=== PATIENT | female | born 1970 | race Caucasian/White ===

== ENCOUNTER 2017-01-16 19:18 | Emergency (ER) | payer OTHER ==
[2017-01-16 19:29] VITALS: BP 121/77; PULSE 76; TEMP 98.5; BMI 24.2
[2017-01-16] MEDS ORDERED: METOCLOPRAMIDE HCL INJECTION 10 MG/2 ML VIAL IVPB ONE (19:52)
[2017-01-16] MEDS ORDERED: SODIUM CHLORIDE 1,000 ML IV STA (19:53)
--- NOTE | 2017-01-16 19:56 | PDOC ---
History of Present Illness - General Chief Complaint: Migraine Headache Stated Complaint: MIGRAINE Time Seen by Provider: 01/16/17 19:34 History Source: Patient Exam Limitations: No Limitations - History of Present Illness Initial Comments: 01/16/17 20:29 Chief complaint: Migraine headache "like lightning bolt pain", nausea History of present illness: Patient is a 46-year-old female with history of migraines chronic back and neck pain here today complaining of worsening migraine today with lightning bolt sensations to her head with nausea. Patient reports that she took Foricet this morning however pain was not relieved. Patient has photophobia & phonophobia, patient reports that pain starts in the back of her head and radiates to the front of her head bilaterally. She denies any change in her vision. Patient reports the pain currently is a 10 out of 10. Reports that she gets lightning bolt-like sensations intermittently to her head that are intense. Patient reports that this is not usual for her headaches. She denies any chance of is on oral contraceptives. Timing/Duration: reports: waxing and waning (today ) Severity: Yes: severe Associated Symptoms: reports: loss of consciousness, nausea/vomiting (nausea), vision changes, other (photophobia, phonophobia, lightening bolt sensation to head intermittent today,) Past History - Past Medical History Allergies/Adverse Reactions: Allergies Allergy/AdvReac Type Severity Reaction Status Date / Time No Known Allergies Allergy Verified 01/16/17 19:27 Home Medications: Ambulatory Orders Ibuprofen [Motrin -] 600 mg PO QID #28 tablet 08/26/15 Clonazepam [Klonopin] 1 mg PO BID PRN 12/26/15 Morphine *Sr* [Ms Contin -] 15 mg PO Q12H 12/26/15 Nortriptyline HCl [Pamelor -] 25 mg PO HS 12/26/15 Oxycodone Sr [Oxycontin] 10 mg PO BID 12/26/15 Suicide Attempt (Hx): No Other medical history: Migraine - Surgical History Neurologic Surgery: Yes (cervical neck ) - Immunization History Immunization Up to Date: Yes - Psycho/Social/Smoking Cessation Hx Suicidal Ideation: No Smoking Status: Yes Smoking History: Never smoked Have you smoked in the past 12 months: No Number of Cigarettes Smoked Daily: 0 Hx Alcohol Use: No Drug/Substance Use Hx: No Substance Use Type: None Neuro Specific PMHX - Complaint Specific PMHX Herniated Disk: Yes (cervical with surgical repair) Migraine: Yes Review of Systems - Review of Systems Able to Perform ROS?: Yes Constitutional: No: Symptoms Reported HEENTM: Yes: Other (photophobia ) Respiratory: No: Symptoms reported Cardiac (ROS): No: Symptoms Reported ABD/GI: Yes: Nausea : No: Symptoms Reported Musculoskeletal: No: Symptoms Reported Integumentary: No: Symptoms Reported Neurological: Yes: Headache (with lightening bolt sensation intermittently today ) *Physical Exam - Vital Signs Last Vital Signs Temp Pulse Resp BP Pulse Ox 98.5 F 76 18 121/77 98 01/16/17 19:27 01/16/17 19:27 01/16/17 19:27 01/16/17 19:27 01/16/17 19:27 - Physical Exam General Appearance: Yes: Appropriately Dressed HEENT: positive: EOMI, JOHN, Normal ENT Inspection, Photophobia Neck: negative: Lymphadenopathy (R), Lymphadenopathy (L) Respiratory/Chest: positive: Lungs Clear, Normal Breath Sounds. negative: Chest Tender, Respiratory Distress Cardiovascular: positive: Regular Rhythm, Regular Rate, S1, S2 Integumentary: positive: Normal Color Neurologic: positive: barrel filler II-XII NML intact, Alert, Normal Response, Motor Strength 5/5, Respond to painful stimul, Responsive, Finger to Nose. negative: Numbness, Sensory Deficit Medical Decision Making - Medical Decision Making 01/16/17 20:32 Patient is a 46-year-old female with history of migraines chronic back and neck pain here today complaining of worsening migraine today with lightning bolt sensations to her head with nausea. Patient reports that she took Foricet this morning however pain was not relieved. Patient has photophobia & phonophobia, patient reports that pain starts in the back of her head and radiates to the front of her head bilaterally. She denies any change in her vision. Patient reports the pain currently is a 10 out of 10. Reports that she gets lightning bolt-like sensations intermittently to her head that are intense. Patient reports that this is not usual for her headaches. She denies any chance of is on oral contraceptives. Migraine non intractable PLAN: iv insert reglan 10 mg IVPB benadryl 25 mg IVPB urine hcg negative toradol 30 mg IVPB NS 0.9 1000 ml IV bolus FEELING BETTER WILL BE DISCHARGE TO HOME 01/16/17 20:36 01/16/17 22:00 Data Detail Level: Printer-Friendly View | Show Extended View Confidential Drug Utilization Report Search Terms: Michelle Rodriguez, 1970 Search Date: 01/16/2017 09:59 :05 PM The Drug Utilization Report below displays all of the controlled substance prescriptions, if any, that your patient has filled in the last twelve months. The information displayed on this report is compiled from pharmacy submissions to the Department, and accurately reflects the information as submitted by the pharmacies. This report was requested by: Bettye Ritchie | Reference #: [id number] Others' Prescriptions Patient Name: Michelle Rodriguez Date: 1970 Address: [address] [place] [address] Sex: Female Rx Written Rx Dispensed Drug Quantity Days Supply Prescriber Name 12/21/2016 12/21/2016 oxycodone-acetaminophen 10-325 mg tab 30 30 Doblin, Kasey [employer] 11/20/2016 11/20/2016 oxycodone-acetaminophen 10-325 mg tab 30 30 Doblin, Kasey [employer] 11/20/2016 11/20/2016 clonazepam 1 mg tablet 60 30 Doblin, Kasey [employer] 01/16/17 22:11 *DC/Admit/Observation/Transfer Diagnosis at time of Disposition: Migraine Qualifiers: Migraine type: unspecified Status migrainosus presence: without status migrainosus Intractability: not intractable Qualified Code(s): G43.909 - Migraine, unspecified, not intractable, without status migrainosus - Discharge Dispostion Disposition: HOME Condition at time of disposition: Stable - Patient Instructions Additional Instructions: fOLLOW up with your neurologist as soon as possible Return to emergency room if symptoms worsen headache reoccurs and is unrelieved by your present migraine medication Rest and drink a lot a fluids Patient voiced understanding of discharge instructions and all questions were answered
[2017-01-16] MEDS ORDERED: KETOROLAC TROMETHAMINE 60 MG/2 ML VIAL IVPB ONE (20:35)
[2017-01-16] MEDS ORDERED: METOCLOPRAMIDE HCL INJECTION 10 MG/2 ML VIAL ONE (20:35)
[2017-01-16] MEDS ORDERED: KETOROLAC TROMETHAMINE 30 MG/1 ML VIAL ONE (21:06)
== END 2017-01-16 22:22 | disposition home or self-care (01) ==
LOC: JER 19:18 → JERFT 19:18
PROC: 3E0337Z Introduction of Electrolytic and Water Balance Substance into Peripheral Vein, Percutaneous Approach (ICD-10-PCS; principal; 2017-01-16)
PROC: 3E0333Z Introduction of Anti-inflammatory into Peripheral Vein, Percutaneous Approach (ICD-10-PCS; 2017-01-16)
PROC: 3E033GC Introduction of Other Therapeutic Substance into Peripheral Vein, Percutaneous Approach (ICD-10-PCS; 2017-01-16)
DX: G43.909 Migraine, unspecified, not intractable, without status migrainosus (principal); M54.2 Cervicalgia; M54.5 Low back pain; G89.29 Other chronic pain
CPT/HCPCS: 84703; 96361; 96374; 96375; 99281-25

== ENCOUNTER 2017-02-21 19:32 | Emergency (ER) | payer OTHER ==
[2017-02-21 19:41] VITALS: TEMP 98.1; BMI 25.0
--- NOTE | 2017-02-21 19:47 | PDOC ---
History of Present Illness - General History Source: Patient Exam Limitations: No Limitations - History of Present Illness Initial Comments: 02/21/17 20:17 The patient is a 47 year old female with significant past medical history of migraines and chronic back and neck pain who presents to the ED for left arm numbness and weakness prior to arrival. Patient reports she went to her dentist office yesterday morning for a dental procedure and subsequently after going home she developed pain and swelling to the left side of the face. She returned to her dentist office yesterday afternoon after her pain worsened. States that the pain and swelling to the left side of the face has not improved. She also reports developing left hand shaking yesterday morning and 20 minutes prior to arrival, her left hand shaking has worsened. At that time, she also started to developed left arm numbness and weakness. States her left arm had been feeling very heavy. No slurred speech or facial droop noted. Patient also has complaints of a migraine and associated blurry vision and nausea that has not improved. Denies vomiting. She also reports slight chest discomfort, which she contributes to her usual anxiety. The patient denies fever, chills, cough, SOB, abdominal pain, and diarrhea. Allergies: NKDA Social History: No alcohol, tobacco, or drug use reported. Past Surgical History: C-spine fusion at C4-5-6 PCP: Dr. Alexei Huynh: Dr. Savi Lares <Ana Lam - Last Filed: 02/21/17 21:19> - General History Source: Patient <LorenzoSelvin rodriguez - Last Filed: 02/21/17 23:11> - General Chief Complaint: CVA/TIA Stated Complaint: NUMBNESS Time Seen by Provider: 02/21/17 19:47 Past History <Ana Lam - Last Filed: 02/21/17 21:19> - Past Medical History Suicide Attempt (Hx): No - Surgical History Neurologic Surgery: Yes (cervical neck ) - Immunization History Immunization Up to Date: Yes - Psycho/Social/Smoking Cessation Hx Suicidal Ideation: No Smoking Status: Yes Smoking History: Never smoked Have you smoked in the past 12 months: No Number of Cigarettes Smoked Daily: 0 Hx Alcohol Use: No Drug/Substance Use Hx: No Substance Use Type: None <Selvin Palacios - Last Filed: 02/21/17 23:11> - Past Medical History Allergies/Adverse Reactions: Allergies Allergy/AdvReac Type Severity Reaction Status Date / Time No Known Allergies Allergy Verified 02/21/17 19:39 Home Medications: Ambulatory Orders Ibuprofen [Motrin -] 600 mg PO QID #28 tablet 08/26/15 Clonazepam [Klonopin] 1 mg PO BID PRN 12/26/15 Nortriptyline HCl [Pamelor -] 25 mg PO HS 12/26/15 Ondansetron [Zofran *Odt*] 4 mg SL TID #30 od.tablet 02/21/17 Neuro Specific PMHX - Complaint Specific PMHX Herniated Disk: Yes (cervical with surgical repair) Migraine: Yes <Selvin Palacios - Last Filed: 02/21/17 23:11> Review of Systems - Review of Systems Able to Perform ROS?: Yes Comments:: 02/21/17 20:17 CONSTITUTIONAL: Absent: fever, chills, diaphoresis, generalized weakness, malaise, loss of appetite HEENT: +pain and swelling to the left side of the face, blurry vision Absent: rhinorrhea, nasal congestion, throat pain, throat swelling, difficulty swallowing, ear pain, eye pain CARDIOVASCULAR: +chest discomfort Absent: syncope, palpitations, irregular heart rate, lightheadedness, peripheral edema RESPIRATORY: Absent: cough, shortness of breath, dyspnea with exertion, orthopnea, wheezing, stridor, hemoptysis GASTROINTESTINAL: +nausea Absent: abdominal pain, abdominal distension, vomiting, diarrhea, constipation, melena, hematochezia GENITOURINARY: Absent: dysuria, frequency, urgency, hesitancy, hematuria, flank pain, genital pain MUSCULOSKELETAL: Absent: myalgia, arthralgia, joint swelling SKIN: Absent: rash, itching, pallor NEUROLOGIC: +left hand shaking, left arm numbness and weakness, migraine Absent: dizziness, unsteady gait, seizure, mental status changes, bladder or bowel incontinence <Ana Lam - Last Filed: 02/21/17 21:19> *Physical Exam - Vital Signs Last Vital Signs Temp Pulse Resp BP Pulse Ox 98.1 F 104 H 22 156/94 97 02/21/17 19:40 02/21/17 19:40 02/21/17 19:40 02/21/17 19:40 02/21/17 19:40 - Physical Exam Comments: 02/21/17 20:18 GENERAL: Well developed, well nourished. Awake and alert. Moderate distress. HEENT: Normocephalic, atraumatic. PERRLA, EOMI. No conjunctival pallor. Sclera are non- icteric. Moist mucous membranes. Oropharynx is clear. NECK: Supple. Full ROM. No JVD. Carotid pulses 2+ and symmetric, without bruits. No thyromegaly. No lymphadenopathy. CARDIOVASCULAR: Regular rate and rhythm. No murmurs, rubs, or gallops. Distal pulses are 2+ and symmetric. PULMONARY: No evidence of respiratory distress. Lungs clear to auscultation bilaterally. No wheezing, rales or rhonchi. ABDOMINAL: Soft. Non-tender. Non-distended. No rebound or guarding. No organomegaly. Normoactive bowel sounds. MUSCULOSKELETAL Normal range of motion at all joints. No bony deformities or tenderness. No CVA tenderness. EXTREMITIES: No cyanosis. No clubbing. No edema. No calf tenderness. SKIN: Warm and dry. Normal capillary refill. No rashes. No jaundice. NEUROLOGICAL: Alert, awake, oriented. Answering questions appropriately. No facial droop. Normal speech. 3/5 motor strength to the left arm and remainder of the extremities are grossly intact. Sensation grossly intact throughout. <Ana Lam - Last Filed: 02/21/17 21:19> - Vital Signs Last Vital Signs Temp Pulse Resp BP Pulse Ox 98.1 F 104 H 22 156/94 97 02/21/17 19:40 02/21/17 19:40 02/21/17 19:40 02/21/17 19:40 02/21/17 19:40 <Selvin Palacios - Last Filed: 02/21/17 23:11> NIH Stroke Scale - Last Known Well Date/Time & Onset Date Last Known Well: 02/21/17 Time Last Known Well: 19:30 - Initial Evaluation Level of consciousness: Alert Ask patient the month and their age: Answers both correctly Ask patient to open & close eyes; make fist and let go: Obeys both correctly Best gaze (horizontal eye movement): Normal Visual field testing: No visual field loss Facial paresis (Show teeth/raise eyebrows/close eyes tight): Normal symmetrical movement Motor Function: Left Arm: Drift Motor Function: Right Arm: Normal (extends arm 90 (or 45) degrees for 10 seconds without drift Motor Function: Left Leg: Normal (extends leg 30 degrees for 5 seconds without drift) Motor Function: Right Leg: Normal (extends leg 30 degrees for 5 seconds without drift) Limb Ataxia: Present in one limb Sensory(Use pinprick test arms,legs,trunk,face/side to side): Mild to moderate decrease in sensation Best language (Describe picture, name items, read sentences): No Aphasia Dysarthria (read several words): Normal articulation Extinction and Inattention: No abnormality - Total Score NIH Stroke Scale Score: 3 <Selvin Palacios - Last Filed: 02/21/17 23:11> tPA Exclusion Checklist 0-3hr - Time Elapsed Date last known well: 02/21/17 Time last known well: 19:20 Elaspsed time: Day(s) and 3 Hour(s) and 47 Minutes - Thrombolytic Therapy Candidate Is the patient eligible for Thrombolytic Therapy?: Yes - Exclusion Criteria 0-3hr SBP greater than 185 or DBP greater than 110mmHg despite tx: No Recent IC/spinal surgery,head trauma or stroke w/in last 3mo: No Hx of previous IC hemorrhage, IC neoplasm, AVM or aneurysm: No Active internal bleeding: No Blding diathesis(low plt ct, inc PTT,INR>1.7 or use of NOAC): No Symptoms suggest subarachnoid hemorrhage: No CT demonstrates multilobar infarct(>1/3 cerebral hemiphere): No Arterial puncture at noncompressible site in previous 7 days: No Blood glucose concentration less than 50mg/dL (2.7mmol/L): No - Relative Exclusion Criteria 0-3h Life expectancy <1yr/severe co-morbid illness/SMELLER on admit: No : No Patient/family refused: No Rapid improvement: No Stroke severity too mild: No Recent acute [place] (w/in previous 3 months): No Seizure at onset with postictal residual neuro impairments: No Major surgery or serious trauma w/in previous 14 days: No Recent GI or hemorrhage (w/in previous 21 days): No - Ineligibility reason(s) Reasons No tPA given: See reason(s) noted above (spoke to Neurology Dr. Roberts. Pt not having a stroke) <Selvin Palacios - Last Filed: 02/21/17 23:11> Heart Score/ECG Review - ECG Impressions Comment:: 02/21/17 20:18 NSR @88bpm Low voltage QRS prolonged QT Abnormal ECG <Ana Lam - Last Filed: 02/21/17 21:19> Critical Care Time/MDM Note - Medical Decision Making Note: 02/21/17 20:18 Documentation prepared by Ana Lam, acting as center medical and lab director for Selvin Palacios MD/DO. 02/21/17 20:[address] Cornell Roberts (via answering service) at 20:21 Awaiting call back 02/21/17 20:23 Patient's case discussed with Dr. Roberts at 20:23 02/21/17 20:[address] Savi Lares (via answering service) at 20:31 Awaiting call back 02/21/17 21:14 Second call placed to Dr. Lares (via answering service) at 21:14 Awaiting call back 02/21/17 21:20 Patient's case discussed with Dr. Lares at 21:20 <Ana Lam - Last Filed: 02/21/17 21:19> - Medical Decision Making Note: 02/21/17 23:10 Dr. Palacios: The scribe's documentation has been prepared under my direction and personally reviewed by me in its entirery. I confirm that the note above accurately reflects all work, treatment, procedures, and medical decision making performed by me. All studies returned to be stable. No sign of intracranial pathology. Patient will be discharged to follow-up with neurology tomorrow. <Selvin Palacios - Last Filed: 02/21/17 23:11> Discharge Disposition <Ana Lam - Last Filed: 02/21/17 21:19> - Discharge Dispostion Admit: No <Selvin aPlacios - Last Filed: 02/21/17 23:11> - Diagnosis Migraine Qualifiers: Migraine type: with aura Status migrainosus presence: without status migrainosus Intractability: not intractable Qualified Code(s): G43.109 - Migraine with aura, not intractable, without status migrainosus - Discharge Dispostion Disposition: HOME Condition at time of disposition: Improved - Prescriptions Prescriptions: Ondansetron [Zofran *Odt*] 4 mg SL TID #30 od.tablet - Referrals Referrals: Alexei Sal MD [Primary Care Provider] - Savi Lares MD [Staff Physician] - - Patient Instructions Printed Discharge Instructions: DI for Migraine Additional Instructions: continue all your current medications. Follow up with Dr. Lares tomorrow as he is expecting to see you. REturn if any problems ED Treatment Course - LABORATORY CBC & Chemistry Diagram: 02/21/17 20:20 02/21/17 20:20 - RADIOLOGY Radiograph Interpretation: 02/21/17 20:30 TYPE/EXAM: CT/HEAD CT (STROKE) Radiologist's Impression: Compared to prior MRI of the brain dated 01/19/2017 The ventricles and basal cisterns appear unremarkable. Previously described periventricular T2 hyperintense foci are not grossly appreciated on this exam. No mass lesion, gross acute infarct or intracranial hemorrhage is identified. There is no shift of the midline structures. The calvarium is intact. Visualized paranasal sinuses and mastoid air cells are well aerated Impression: See discussion above. No CT evidence of acute intracranial pathology is identified. Correlate clinically to determine further evaluation follow-up. Reported By: Harrison Peña MD 02/21/172006 <Ana Lam - Last Filed: 02/21/17 21:19> - LABORATORY CBC & Chemistry Diagram: 02/21/17 20:20 02/21/17 20:20 <Selvin Palacios - Last Filed: 02/21/17 23:11>
[2017-02-21] MEDS ORDERED: SODIUM CHLORIDE 1,000 ML IV SCH (20:00)
[2017-02-21] MEDS ORDERED: METOCLOPRAMIDE HCL INJECTION 10 MG/2 ML VIAL IVPUSH ONE (20:24)
[2017-02-21] MEDS ORDERED: METOCLOPRAMIDE HCL INJECTION 10 MG/2 ML VIAL ONE (20:28)
[2017-02-21] MEDS ORDERED: SUMAtriptan SUCCINATE 50 MG TABLET PO SCH (20:30)
[2017-02-21 20:31] LABS: BASOPHIL 0.7 % (0-2.0); EOSINOPHIL 2.5 % (0-4.5); MCHC 32.9 g/dl (32.0-36.0); MEAN PLT VOLUME 8.1 fl (7.5-11.1); NEUTROPHILS 53.8 % (42.8-82.8); PLATELET COUNT 244 K/MM3 (134-434); RDW 13.1 % (11.6-15.6); WHITE BLOOD COUNT 5.3 K/mm3 (4.0-10.0)
[2017-02-21] MEDS ORDERED: SUMAtriptan SUCCINATE 50 MG TABLET ONE (20:39)
[2017-02-21 20:52] LABS: INR 0.86 (0.82-1.09); PROTHROMBIN TIME (PATIENT) 9.4 SEC (9.98-11.88)
[2017-02-21 21:13] LABS: ALBUMIN 4.2 g/dl (3.4-5.0); ANION GAP 9 (8-16); BILIRUBIN,TOTAL 0.2 mg/dL (0.2-1.0); CALCIUM 8.8 mg/dL (8.5-10.1); CHOLESTEROL 233 mg/dL (50-200); CO2 29 mmol/L (21-32); COCKROFT - GAULT 98.5575; CREATININE 0.8 mg/dL (0.55-1.02); GLUCOSE,RANDOM 94 mg/dL (74-106); LDL CHOLESTEROL (ONLY SJRH) 137 mg/dL (5-100); SGOT/AST 23 U/L (15-37); SGPT/ALT 34 U/L (12-78); TOT PROT 7.6 g/dl (6.4-8.2)
[2017-02-21 21:14] LABS: ALK PHOS 130 U/L (45-117); TROPONIN I < 0.02 ng/ml (0.00-0.05)
[2017-02-21] MEDS ORDERED: morphine CARPU-JECT 2 MG/1 ML DISP.SYRIN IVPUSH ONE (21:24)
[2017-02-21] MEDS ORDERED: ONDANSETRON 4 MG/2 ML VIAL IVPUSH STA (21:24)
[2017-02-21] MEDS ORDERED: morphine CARPU-JECT 4 MG/1 ML DISP.SYRIN ONE (21:27)
[2017-02-21] MEDS ORDERED: ONDANSETRON 4 MG/2 ML VIAL ONE (21:28)
[2017-02-21 22:07] LABS: URINE APPEARANCE CLEAR; URINE BILIRUBIN NEGATIVE (NEGATIVE); URINE BLOOD NEGATIVE (NEGATIVE); URINE COLOR STRAW; URINE GLUCOSE (UA) NEGATIVE (NEGATIVE); URINE KETONE NEGATIVE (NEGATIVE); URINE NITRITE NEGATIVE (NEGATIVE); URINE PROTEIN NEGATIVE (NEGATIVE); URINE UROBILINOGEN NEGATIVE E.U./dl (0.2-1.0)
[2017-02-21 22:09] LABS: URINE LEUK ESTERASE TRACE (NEGATIVE)
[2017-02-21 22:15] LABS: URINE BACTERIA RARE /hpf (NONE SEEN); URINE RBC <1 /hpf (0-3); URINE WBC 3 /hpf (3-5)
[2017-02-21] MEDS ORDERED: KETOROLAC TROMETHAMINE 30 MG/1 ML VIAL IVPUSH ONE (22:20)
[2017-02-21] MEDS ORDERED: KETOROLAC TROMETHAMINE 30 MG/1 ML VIAL ONE (22:31)
[2017-02-21 23:36] VITALS: BP 124/74; PULSE 78
--- NOTE | 2017-02-22 12:31 | EKG ---
Test Reason : Blood Pressure : / mmHG Vent. Rate : 088 BPM Atrial Rate : 088 BPM P-R Int : 144 ms QRS Dur : 086 ms QT Int : 402 ms P-R-T Axes : 055 -08 050 degrees QTc Int : 486 ms NORMAL SINUS RHYTHM LOW VOLTAGE QRS PROLONGED QT ABNORMAL ECG NO PREVIOUS ECGS AVAILABLE Confirmed by NADINE RYAN, BENITA ([id number]) on 02/22/2017 12:31:06 PM Referred By: Confirmed By:BENITA MCCOY MD
== END 2017-02-21 23:30 | disposition home or self-care (01) ==
LOC: JER 19:32
PROC: 3E0337Z Introduction of Electrolytic and Water Balance Substance into Peripheral Vein, Percutaneous Approach (ICD-10-PCS; principal; 2017-02-21)
PROC: 3E033NZ Introduction of Analgesics, Hypnotics, Sedatives into Peripheral Vein, Percutaneous Approach (ICD-10-PCS; 2017-02-21)
PROC: 3E0333Z Introduction of Anti-inflammatory into Peripheral Vein, Percutaneous Approach (ICD-10-PCS; 2017-02-21)
PROC: 3E033GC Introduction of Other Therapeutic Substance into Peripheral Vein, Percutaneous Approach (ICD-10-PCS; 2017-02-21)
DX: G43.109 Migraine with aura, not intractable, without status migrainosus (principal)
CPT/HCPCS: 36415; 70450-TC; 80053; 81003; 81015; 82465; 82550; 83718; 83721; 84478; 84484; 85025; 85610; 86850; 86900; 86901; 93005; 93010; 99285-25

== ENCOUNTER 2021-11-16 18:34 | Emergency (ER) | payer OTHER ==
[2021-11-16 18:55] VITALS: BP 147/72; PULSE 79; TEMP 99; BMI 25.0
[2021-11-16] MEDS ORDERED: ACETAMINOPHEN 500 MG TABLET (FP) PO ONE (20:23)
[2021-11-16] MEDS ORDERED: ONDANSETRON 4 MG TABLET PO ONE ×2 (20:23→20:44)
[2021-11-16] MEDS ORDERED: ACETAMINOPHEN 500 MG TABLET (FP) ONE (20:44)
[2021-11-16] MEDS ORDERED: MECLIZINE HCL 25 MG TABLET (FP) PO ONE (21:47)
[2021-11-16] MEDS ORDERED: MECLIZINE HCL 25 MG TABLET (FP) ONE (21:53)
== END 2021-11-16 22:41 | disposition home or self-care (01) ==
LOC: JERFT 18:34
DX: S06.0X0A Concussion without loss of consciousness, initial encounter (principal); W01.0XXA Fall on same level from slipping, tripping and stumbling without subsequent striking against object, initial encounter
CPT/HCPCS: 70450-TC; 70486-TC; 99284-25